=== PATIENT | female | born 1965 | race Caucasian/White ===

== ENCOUNTER → 2016-04-23 | Outpatient (CLI) | payer OTHER ==
--- NOTE | ~2016-04-23 | SLE ---
[facility] [place] [address] POLYSOMNOGRAPHY STUDY Name: TEAGANIGOR Chin Room #: REG [facility]#: [id number] Admission: 04/23/16 Attend Phys: Syed Irizarry MD Discharge: Date of : 67 Report #: [id number] THIS REPORT FOR: //name// CC: Syed Lemon HISTORY: The patient with a prior study, 11/26/2015. Apnea-hypopnea index of 8.3 events per sleep hour. Low oxygen saturation, 88%. Respiratory effort-related arousal 2.4 events per sleep hour. Periodic limb movement with arousal index of 3.2 events per sleep hour. There was a positional component. Supine AHI 8, left lateral 23, right lateral 6. The patient was on an auto-titrating CPAP for a study on 03/04, which did not show a definite CPAP setting. COMMENTS: BiPAP titration night, titrated at IPAP of 8, EPAP of 4, 10/, 02/11, 03/14 and 18/11. At an IPAP of 11 and EPAP of 7, the patient was seen for 95 minutes, of which 21 minutes were in REM sleep. There were 21 hypopneas, apnea-hypopnea index 13 events per sleep hour, low oxygen saturation 85%. At IPAP of 12, EPAP of 8, the patient was seen for 190 minutes, of which 4 minutes were in REM sleep. There were 3 central apneas, 21 hypopneas, apnea-hypopnea index of 8 events per sleep hour, low oxygen saturation 86%. At an IPAP of 14, EPAP of 8, the patient was only seen for 36 minutes. However, no REM sleep was seen. There were 16 hypopneas, apnea-hypopnea index 26 events per sleep hour, low sat of 91%. During the night, the patient significant leak throughout. She also took two 15 mg temazepam 10:00 p.m. The patient had arousals during the night. IMPRESSION: 1. Obstructive sleep apnea/hypopnea, G47.33. 2. No significant arrhythmias. 3. A definite BiPAP setting was not established. SUGGESTIONS: 1. In addition to specific therapy, the patient should be cautioned regarding driving or operating dangerous machinery unless fully alert. The patient should be cautioned regarding the use of respiratory depressants. 2. The usual sleep apnea suggestions are recommended. 3. Further evaluation regarding medications in relation to daytime somnolence is recommended. 4. A trial of IPAP of 14 and EPAP of 7 is initially recommended with a Bi-Flex of 3 and heated humidity. Mask fit will be of utmost importance and during our study, a Respironics Margarita View small mask was used. However, it had leak and harness issues during this. 5. If signs and symptoms not improved with therapy, further evaluation is [facility] [address] [place] [address] POLYSOMNOGRAPHY STUDY Name: IGOR CANDELARIA Room #: REG [facility] Geri#: [id number] Admission: 04/23/16 Attend Phys: Syed Irizarry MD Discharge: Date of : 67 Report #: [id number] recommended. Please do not hesitate to contact me if I may be of further assistance. <ELECTRONICALLY SIGNED> By: Syed Irizarry MD 05/01/162231 99 Syed Irizarry MD /nt
== END ==
LOC: SLEEPLAB 09:36
DX: G47.33 Obstructive sleep apnea (adult) (pediatric) (principal)

== ENCOUNTER → 2017-02-14 | Outpatient (CLI) | payer OTHER ==
[~2017-02-14] MED LIST: ACETAMINOPHEN-1 EAC1 PO; ASPIR 8181 MG; BENICAR 5 MG5 MG; BUPROPION HCL200 M1; CYMBALTA60 MG; FLEXERIL PO; LAMICTAL200 MG; LEVOTHYROXIN0.112 M1 PO; MICROZIDE12.5 MG; NORVASC10 MG; RESTORIL7.5 M1; TORADOL 10 MG T10 MG PO
== END ==
LOC: RAD 16:21
DX: S89.91XA Unspecified injury of right lower leg, initial encounter (principal); X58.XXXA Exposure to other specified factors, initial encounter; Y93.89 Activity, other specified; Y92.89 Other specified places as the place of occurrence of the external cause; Y99.8 Other external cause status

== ENCOUNTER 2017-08-22 21:45 | Emergency (ER) | payer OTHER ==
[~2017-08-22] VITALS: Ht 162.6 cm; Wt 110.2 kg
[2017-08-22] MEDS ORDERED: GLUCOPHAGE XR500 MG PO (22:11)
[2017-08-22] MEDS ORDERED: ACCUNEB SO1.25 MG/1 INH (22:12)
[2017-08-22] MEDS ORDERED: FLEXERIL PO (22:12)
[2017-08-22] MEDS ORDERED: MOBIC7.5 MG PO (22:12)
[2017-08-22] MEDS ORDERED: IRON325 PO (22:12)
[2017-08-22] MEDS ORDERED: IMITREX 50 MG T50 MG PO (22:13)
[2017-08-22] MEDS ORDERED: MAGOX 400400 MG PO (22:13)
[2017-08-22 22:43] LABS: ABSOLUTE NEUTROPHILS 7.6 thou/uL (1.4-8.2); BASOPHILS 0.5 % (0.0-2.0); EOSINOPHILS 1.3 % (0.0-3.0); HEMATOCRIT 40.1 % (37.0-47.0); HEMOGLOBIN 13.2 gm/dL (12.0-15.0); LYMPHOCYTES 24.3 % (24.0-44.0); MCH 29.9 pg (26.0-34.0); MCV 90.6 fL (80.0-100.0); MONOCYTES 10.2 % (1.0-8.0); PLATELET COUNT 362 thou/uL (150-400); POLYS 63.7 % (36.0-66.0); RBC 4.42 mil/uL (4.20-5.00); RDW 14.3 % (10.5-14.5); WBC 11.9 thou/uL (4.0-11.0)
[2017-08-22 22:53] LABS: CALCIUM 9.2 mg/dL (8.5-10.1); POTASSIUM 3.9 mmol/L (3.5-5.1)
[2017-08-22 23:45] LABS: URINE BILIRUBIN NEGATIVE (Negative); URINE BLOOD 3+ (Negative); URINE CLARITY CLEAR; URINE COLOR YELLOW; URINE GLUCOSE-RANDOM* NEGATIVE (Negative); URINE KETONES NEGATIVE (Negative); URINE LEUKOCYTES-REFLEX NEGATIVE (Negative); URINE NITRITE-REFLEX NEGATIVE (Negative); URINE PROTEIN (DIPSTICK) NEGATIVE (Negative); URINE SPECIFIC GRAVITY 1.025 (1.005-1.035); URINE UROBILINOGEN 0.2 E.U./dl (0.2-1.0)
[2017-08-22 23:52] LABS: AMP/METHAMP Negative (Negative); BARBITURATES Negative (Negative); BENZODIAZEPINES Negative (Negative); COCAINE Negative (Negative); METHADONE Negative (Negative); OPIATES Negative (Negative); PCP Negative (Negative)
[2017-08-22 23:54] LABS: HYALINE CASTS 0-3 Few /LPF (None Seen); MUCUS 0-3 Light strn/LPF (None Seen); SQUAMOUS 4-10 Moderate /LPF (0-3)
[2017-08-22 23:55] LABS: BACTERIA-REFLEX 1-9 Few /HPF (None Seen); CRYSTALS None Seen /LPF (None Seen); URINE WBC-REFLEX 0-5 Rare /HPF (0-5)
[2017-08-23 03:45] VITALS: BP 120/71
[2017-08-25 14:08] LABS: NEISSERIA GONORRHEA-PCR Negative (Negative)
== END 2017-08-23 03:46 | disposition home or self-care (01) ==
LOC: ER 21:45
PROVIDERS: Physician Assistant
DX: N93.8 Other specified abnormal uterine and vaginal bleeding (principal); F31.11 Bipolar disorder, current episode manic without psychotic features, mild; Z88.1 Allergy status to other antibiotic agents; Z88.8 Allergy status to other drugs, medicaments and biological substances; Z91.040 Latex allergy status

== ENCOUNTER → 2017-09-15 | Outpatient (CLI) | payer OTHER ==
[~2017-09-15] MED LIST changes: +ACCUNEB SO1.25 MG/1 INH; +GLUCOPHAGE XR500 MG PO; +IMITREX 50 MG T50 MG PO; +IRON325 PO; +MAGOX 400400 MG PO; +MOBIC7.5 MG PO
== END ==
LOC: ULTRA 10:27
DX: N92.6 Irregular menstruation, unspecified (principal); N83.202 Unspecified ovarian cyst, left side

== ENCOUNTER → 2017-11-13 | Outpatient (CLI) | payer OTHER ==
--- NOTE | ~2017-11-13 | EEG ---
[place] [address] ELECTROENCEPHALOGRAM Name: IGOR CANDELARIA Room #: REG [facility].#: [id number] Admission: 11/13/17 Attend Phys: Sahil Lim MD Discharge: Date of : 67 Report #: [id number] THIS REPORT FOR: //name// CC: Jovana Lim DATE OF SERVICE: 11/13/2017 This patient is evaluated for spasms and to evaluate the possibility of seizures as the etiology for that. This patient's background activity is about 9 Hz and 30 microvolt. This is a symmetrical activity. The patient went to sleep and that is associated with bilaterally symmetrical sleep spindle and vertex sharp waves. Throughout the record, no active epileptiform activity was noticed. IMPRESSION: This patient's EEG is within normal limits. Thank you very much for this referral. By: [id number] Sahil Lim MD /nt
== END ==
LOC: NEURO 08:39
DX: G45.9 Transient cerebral ischemic attack, unspecified (principal); G47.33 Obstructive sleep apnea (adult) (pediatric); N31.2 Flaccid neuropathic bladder, not elsewhere classified; F31.9 Bipolar disorder, unspecified